=== PATIENT | male | born 1985 | race African-American/Black ===

== ENCOUNTER 2022-11-02 17:51 | Emergency (ER) | payer SELFPAY ==
[2022-11-02] MEDS ORDERED: Iopamidol 755 MG/ML 500 ML Multipack Bottle IVPUSH ONE (18:45)
[2022-11-02] MEDS ORDERED: Prochlorperazine 10 MG/2 ML SDV IVPUSH ONE (18:51)
[2022-11-02] MEDS ORDERED: Acetaminophen 325 MG Tab PO ONE (18:52)
[2022-11-02] MEDS ORDERED: diphenhydrAMINE 50 MG/ML SDV IVPUSH ONE (18:52)
[2022-11-02 18:59] LABS: CARBON DIOXIDE,CO2 26.9 mmol/L (21.0-32.0); POTASSIUM,K 3.6 mmol/L (3.5-5.1)
[2022-11-02] MEDS ORDERED: Lactated Ringers 1,000 ML IV SCH (19:00)
[2022-11-02] MEDS ORDERED: Ketorolac 30 MG/ML SDV IVPUSH ONE (19:17)
== END 2022-11-02 20:10 | disposition home or self-care (01) ==
LOC: MW.ED 17:51
DX: R51.9 Headache, unspecified (principal); R42 Dizziness and giddiness
CPT/HCPCS: 36415; 70450; 70496; 70498; 80053; 80305; 81003; 82947; 85025; 85610; 85730; 93005; 96361; 96374; 96375; 99284; A9270; J0780; J1200; J1885; J7120; Q9967